=== PATIENT | male | born 1960 | race Caucasian/White ===

== ENCOUNTER 2017-11-12 15:46 | Inpatient (IN) | payer OTHER ==
[~2017-11-12] VITALS: Ht 167.6 cm; Wt 74.8 kg
[2017-11-12 15:48] VITALS: BP 118/88
--- NOTE | 2017-11-12 16:02 | NUR ---
pt ambulates w/ steady gait to bed 6 at this time.
--- NOTE | 2017-11-12 16:06 | NUR ---
57 yo m bib self w/ c/o left arm numbness/tingling x 1 month, worse yesterday. Pt reports that he feels there is pressure under his left hand finger nails. Feels like his hand is "asleep" Pt sent over from urgent care after getting an EKG. Pt unsure what it showed, is going out to the car to grab the copy of the ekg strip. pt denies n/v/fever. aaox4, gcs 15, cms intact of affected extremity, speaking in full, complete, and appropriate sentences, rr even and unlabored, lungs bilaterally clear. abd soft, non-tender. er md and discharge door operator jefferson notified of pt status. hx htn, dm, cholestrol rx amlodipine, gabapentin, simvastatin, lisinopril, metformin, pantoprazole, invokana, glipizide, potassium, onglyza, ibuprofen
--- NOTE | 2017-11-12 16:19 | NUR ---
Patient being evaluated by physician at bedside.
[2017-11-12 16:48] LABS: BASOPHILS # (AUTO) 0.1 K/uL (0.00-0.22); BASOPHILS % (AUTO) 1.2 % (0.0-2.0); EOSINOPHILS # (AUTO) 0.1 K/uL (0-0.4); EOSINOPHILS % (AUTO) 1.8 % (0.0-4.0); HEMATOCRIT 42.3 % (36-52); LYMPHOCYTES # (AUTO) 2.2 K/uL (2.0-11.5); LYMPHOCYTES % (AUTO) 28.9 % (20.5-51.1); MEAN CORPUSCULAR HEMOGLOBIN 30 pg (27-31); MEAN CORPUSCULAR HGB CONC 33 g/dL (33-37); MEAN CORPUSCULAR VOLUME 91.1 fL (80-94); MONOCYTES # (AUTO) 0.8 K/uL (0.8-1.0); NEUTROPHILS # (AUTO) 4.4 K/uL (1.8-7.7); NEUTROPHILS % (AUTO) 58.1 % (42.2-75.2); PLATELET COUNT (AUTO) 267 K/uL (140-450); RED BLOOD CELL COUNT(AUTO) 4.64 MIL/uL (4.20-6.10); WHITE BLOOD COUNT (AUTO) 7.6 K/uL (4.8-10.8)
[2017-11-12 16:57] LABS: CARBON DIOXIDE 26.8 mmol/L (21-32); CREATININE 0.7 mg/dL (0.7-1.3); POTASSIUM 3.8 mmol/L (3.5-5.1)
[2017-11-12 17:00] LABS: PROTHROMBIN TIME 10.4 secs (10.8-13.4)
[2017-11-12 17:03] LABS: ALBUMIN 4.4 g/dL (3.4-5.0); TOTAL BILIRUBIN 0.1 mg/dL (0.0-1.0)
--- NOTE | 2017-11-12 17:22 | NUR ---
PT RESTING IN NO APPEARENT DISTRESS WITH FAMILY AT BEDSIDE
[2017-11-12] MEDS ORDERED: HYDROcodone/APAP 5/325 MG 1 TAB TAB PO PRN ×2 (18:45)
[2017-11-12] MEDS ORDERED: DOCUSATE SODIUM 250 MG GELCAP PO PRN (18:45)
[2017-11-12] MEDS ORDERED: POTASSIUM CHLORIDE 10 MEQ TABER PO PRN (18:45)
[2017-11-12] MEDS ORDERED: IPRATROPIUM 0.02% 0.5 MG/2.5 ML NEBU INH PRN (18:45)
[2017-11-12] MEDS ORDERED: MAG SULF 2000 MG/WATER PREMIX 50 ML IV PRN (18:45)
[2017-11-12] MEDS ORDERED: cloNIDine 0.1 MG TAB PO PRN (18:45)
[2017-11-12] MEDS ORDERED: ACETAMINOPHEN 650 MG SUPP RC PRN (18:45)
[2017-11-12] MEDS ORDERED: LORazepam 2 MG/ML VIAL IVP PRN (18:45)
[2017-11-12] MEDS ORDERED: BISACODYL 10 MG SUPP RC PRN (18:45)
[2017-11-12] MEDS ORDERED: ONDANSETRON 4 MG/2 ML VIAL IVP PRN (18:45)
[2017-11-12] MEDS ORDERED: MORPHINE SULFATE 2 MG/ML SYR IVP PRN (18:45)
[2017-11-12] MEDS ORDERED: ALUMINUM HYD/MAG/SIMETHICONE 30 ML UDC PO PRN (18:45)
[2017-11-12] MEDS ORDERED: MAGNESIUM OXIDE 400 MG TAB PO PRN (18:45)
[2017-11-12] MEDS ORDERED: ALBUTEROL 0.083% 2.5 MG/3 ML NEBU INH PRN (18:45)
[2017-11-12] MEDS ORDERED: ZOLPIDEM 5 MG TAB PO PRN (18:45)
[2017-11-12] MEDS ORDERED: SODIUM PHOSPHATE 118 ML ENEM RC PRN (18:45)
[2017-11-12] MEDS ORDERED: guaiFENesin DM 200/20 MG-10 ML 10 ML UDC PO PRN (18:45)
[2017-11-12] MEDS ORDERED: ACETAMINOPHEN 325 MG TAB PO PRN (18:45)
--- NOTE | 2017-11-12 19:18 | NUR ---
report given to simeon for continuity of care
--- NOTE | 2017-11-12 19:20 | NUR ---
RECEIVED REPORT FROM AM NURSE. PT RESTING IN BED, DENIES CP AT THIS TIME, REPORTS SLIGHT L ARM WEAKNESS. PT HAS QUESTIONS FOR ER MD BEFORE TAKING PT TO FLOOR, ER MD MADE AWARE.
--- NOTE | 2017-11-12 19:26 | NUR ---
Dr. Lynch re-evaluating patient at bedside.
--- NOTE | 2017-11-12 19:45 | NUR ---
RECEIVED REPORT FROM ER NURSE IGGY NURSE AT BEDSIDE FOR CONTINUITY OF CARE. PT AAOX4. PT IV NOTED R WRIST 18G SALINE LOCK. PT AMBULATORY. NO SOB NO S/S OF DISTRESS ON RA. PT BED LOWERED PT ORIENTED TO ROOM CALL LIGHT WITHIN REACH WILL CONTINUE TO MONITOR.
--- NOTE | 2017-11-12 19:50 | NUR ---
Patient will be admitted to care of DR. NARAYANAN. Admited to TELE. Will go to [id number]. Belongings list completed. Report to GALO SOLANO.
--- NOTE | 2017-11-12 21:00 | NUR ---
PT IN BED AND EATING. NO SOB NO S/S OF DISTRESS.WILL CONTINUE TO MONITOR.
[2017-11-13] VITALS: BP 118/72
[2017-11-13 04:00] VITALS: BP 138/73
--- NOTE | 2017-11-13 04:00 | NUR ---
VITALS WNL. NO SOB NO S/S OF DISTRESS ON RA. WILL CONTINUE TO MONITOR.
--- NOTE | 2017-11-13 06:10 | NUR ---
PT HAS NO BLOOD GLUCOSE CHECKS. DID A BG RANDOM CHECK BG 129 WILL CONTINUE TO MONITOR. AND INDORSE TO DAYSHIFT NURSE WE NEED ORDER BG MONITORING.
[2017-11-13 06:19] LABS: CHOL/HDL RATIO 3.3 (1-4.5)
--- NOTE | 2017-11-13 07:28 | NUR ---
ENDORSED REPORT TO DAYSHIFT NURSE AT BEDSIDE FOR CONTINUITY CARE.
--- NOTE | 2017-11-13 07:29 | NUR ---
RECEIVED REPORT FROM PM NURSE AT THE BEDSIDE. PT LYING ON HIS BACK. AOX4. STATES TO HAVE TINGLING SENSATION ON HIS LEFT HAND. STATES TO HAVE PAIN 3-4 OUT 0F 10. DENIES ANY CHEST PAIN. IS AMBULATORY. HAS IV 22G SALINE LOCK ON HIS RT FA. SITE IS PATENT AND INTACT. PLACED CALL LIGHT WITHIN PT REACH. BED AT LOWER POSITION. ASKED PT TO USE CALL LIGHT FOR ANY HELP. VERBALIZED UNDERSTANDING OF TEACHING. NO SIGN OF DISTRESS NOTED. WILL CONTINUE TO MONITOR PT.
[2017-11-13 08:00] VITALS: BP 130/72
[2017-11-13] MEDS ORDERED: ASPIRIN 81 MG TAB.CHEW PO SCH (09:00)
[2017-11-13] MEDS ORDERED: ENOXAPARIN 40 MG/0.4 ML SYR SUBQ SCH (09:00)
--- NOTE | 2017-11-13 09:07 | NUR ---
PATIENT HAS BEEN SCREENED AND CATEGORIZED MODERATE NUTRITION RISK. PATIENT WILL BE SEEN WITHIN 3-5 DAYS OF ADMISSION. 11/15/17 11/17/[address]
--- NOTE | 2017-11-13 09:45 | NUR ---
ADMINISTERED MEDS ORDERED TO PT. TOLERATED WELL. DENIES ANY PAIN . CALL LIGHT WITHIN PT REACH. WILL CONTINUE TO MONITOR PT.
--- NOTE | 2017-11-13 10:11 | NUR ---
CM NOTE INITIAL REVIEW FAXED TO [facility] [phone] LILLY # [phone]
--- NOTE | 2017-11-13 11:00 | NUR ---
CHECKED ON PT. LYING ON HIS BED. DENIES ANY PAIN. CALL LIGHT WITHIN REACH. BED AT LOWER POSITION. WILL CONTINUE TO MONITOR PT.
[2017-11-13 12:00] VITALS: BP 116/72
--- NOTE | 2017-11-13 12:00 | NUR ---
CHECKED ON PT. VS NOTED NORMAL. NO SIGN OF DISTRESS. PT ASKING IF HE WILL BE DISCHARGED TODAY. INFORMED THAT NO DC ORDER IS RECEIVED YET. WILL UPDATE SOON ORDER ARE AVAILABLE. WILL CONTINUE TO MONITOR PT.
--- NOTE | 2017-11-13 14:06 | NUR ---
RECEIVED CALL FORM DR DEMARCO, INFORMED HER ABOUT PT BP 116/72, HR 79. DR DEMARCO ORDER AMLODIPINE 2.5 MG PO OD. WILL VISIT PT SHORTLY. PT HAS NO SIGN OF DISTRESS. STATES TO HAVE TINGLING SENSATION IN HIS LEFT HAND AND PAIN 3-4 OUT OF 10. CALL LIGHT WITHIN PT REACH. WILL CONTINUE TO MONITOR PT.
[2017-11-13] MEDS ORDERED: ASPI81CT89 PO (15:51)
--- NOTE | 2017-11-13 16:30 | NUR ---
PT WENT HOME WITH ALL HIS BELONGINGS. SPOUSE AND DAUGHTER AT THE BEDSIDE. INFORMED TO SEE PCP WITHIN 1 WK OF DISCHARGE. ALL DC REPORT AND PRESCRIPTION GIVEN TO THE PT. PT IN STABLE CONDITION. VERBALIZED UNDERSTANDING OF THE DC TEACHINGS.
[2017-11-14] MEDS ORDERED: amLODIPine 5 MG TAB PO SCH (09:00)
== END 2017-11-13 16:30 | disposition home or self-care (01) | DRG 48 ==
LOC: MED 15:46 → MTU 18:54
PROVIDERS: ADMIT Internal Medicine; ATTEND Internal Medicine
DX: M54.12 Radiculopathy, cervical region (principal); E87.1 Hypo-osmolality and hyponatremia; E11.9 Type 2 diabetes mellitus without complications; R07.89 Other chest pain; E66.9 Obesity, unspecified; E78.5 Hyperlipidemia, unspecified; I10 Essential (primary) hypertension; M54.9 Dorsalgia, unspecified; G89.29 Other chronic pain; M19.012 Primary osteoarthritis, left shoulder; Z87.891 Personal history of nicotine dependence; Z68.26 Body mass index [BMI] 26.0-26.9, adult
CPT/HCPCS: 36415; 71045; 72050; 80053; 82948; 83036; 83880; 84484; 85025; 85610; 85730; 87081; 93005; 99285; J1650; Q0092

== ENCOUNTER 2020-05-25 18:45 | Emergency (ER) | payer OTHER ==
[~2020-05-25] VITALS: Ht 167.6 cm; Wt 72.6 kg
[~2020-05-25 18:45] MED LIST: ASPI-1822 PO
[2020-05-25 19:02] VITALS: BP 113/84
--- NOTE | 2020-05-25 19:02 | NUR ---
to bed ambulatory
[2020-05-25] MEDS ORDERED: MORPHINE SULFATE 4 MG/ML SYR IM ONE (19:25)
--- NOTE | 2020-05-25 19:33 | NUR ---
60 Y/O BIB DAUGHTER FROM HOME, C/O HEADACHE THAT HAS LASTED FOR THE PAST 3 WEEKS. PT STATED HE SAW HIS PRIMARY CARE DR AND WAS RECOMMENDED A PAIN SHOT FOR HIS CHRONIC BACK PAIN. PT STARTED TO NOTICE THAT HE HAD A HEADACHE THAT STARTED AFTER THE SHOT AND HAS NO GONE AWAY. PT WAS CHECKING GLUCOSE SINCE THE SHOT CAN INCREASE BLOOD GLUCOSE AND STATED HIS BS WAS 350. PMH: HTN AND DIABETES, TAKES MEDICATIONS AT HOME. NKA. A&O X4, AMBULATORY. DENIES CONTACT W[facility] ANYONE COVID POSITIVE AND SYMPTOMS.
[2020-05-25] MEDS ORDERED: ACET-8386 PO (19:42)
--- NOTE | 2020-05-25 20:11 | NUR ---
PT STATES AFTER MORPHINE MEDICATION, EYES ARE STILL HURTING, PAIN IS STILL PRESENT AND STRONG. ERMD NOTIFIED.
[2020-05-25 20:28] VITALS: BP 113/84
== END 2020-05-25 20:29 | disposition home or self-care (01) ==
LOC: MED 18:45
DX: R51.9 Headache, unspecified (principal); M54.5 Low back pain; I10 Essential (primary) hypertension; E11.9 Type 2 diabetes mellitus without complications; Z79.899 Other long term (current) drug therapy
CPT/HCPCS: 81002; 96372; 99283; J2270